=== PATIENT | male | born 1985 | race Two or more races ===

== ENCOUNTER 2023-01-12 14:55 | Emergency (ER) | payer SELFPAY | END 2023-01-12 17:48 | disposition home or self-care (01) | LOC: MW.ED 14:55 | DX: S06.0X0A Concussion without loss of consciousness, initial encounter (principal); W20.8XXA Other cause of strike by thrown, projected or falling object, initial encounter; Y92.69 Other specified industrial and construction area as the place of occurrence of the external cause; Y99.0 Civilian activity done for income or pay | CPT/HCPCS: 70450; 70450-26; 99283 ==